=== PATIENT | female | born 1995 ===

== ENCOUNTER 2018-01-06 20:37 | Inpatient (IN) | payer SELFPAY ==
--- NOTE | 2018-01-06 21:12 | C.PDOC ---
History Of Present Illness 23 year old female presents to the emergency department requesting detox from heroin. Patient reports that she is currently , and states her last usage of heroin was earlier today. Time Seen by Provider: 01/06/18 21:12 Chief Complaint (Nursing): Substance Abuse History Per: Patient History/Exam Limitations: no limitations Onset/Duration Of Symptoms: Hrs Current Symptoms Are (Timing): Still Present Modifying Factor(s): Other (heroin) Severity: Moderate Past Medical History Reviewed: Historical Data, Nursing Documentation, Vital Signs Vital Signs: Last Vital Signs Temp 99 F 01/07/18 00:52 Pulse 75 01/07/18 00:52 Resp 20 01/07/18 00:52 BP 90/55 L 01/07/18 00:52 Pulse Ox 98 01/07/18 00:52 - Medical History PMH: Asthma Surgical History: No Surg Hx Family History: States: No Known Family Hx - Social History Hx Alcohol Use: No Hx Substance Use: Yes - Immunization History Hx Tetanus Toxoid Vaccination: No Hx Influenza Vaccination: No Hx Pneumococcal Vaccination: No Review Of Systems Neurological: Positive for: Altered Mental Status Physical Exam - Physical Exam Appears: Non-toxic, No Acute Distress Head: Normacephalic Eye(s): bilateral: Normal Inspection Oral Mucosa: Moist Neck: Trachea Midline, Supple Chest: Symmetrical Cardiovascular: Rhythm Regular Respiratory: No Rales, No Rhonchi, No Wheezing Gastrointestinal/Abdominal: Soft, No Tenderness, Other (gravid) Back: Normal Inspection Extremity: Normal ROM Extremity: Bilateral: Atraumatic Pulses: Left Dorsalis Pedis: Normal, Right Dorsalis Pedis: Normal Neurological/Psych: Oriented x3 Gait: Steady ED Course And Treatment - Laboratory Results Result Diagrams: 01/06/18 21:21 01/06/18 21:21 O2 Sat by Pulse Oximetry: 100 (RA) Pulse Ox Interpretation: Normal Progress Note: Plan: Alcohol Serum. Beta HCG. CMP. Drug Screen. CBC. AES Crisis Eval. HCG. Urinalysis. Pt might benefit from an VENDING TECHNICIAN consult as pt has not had any care, but has been taking vitamins Disposition Discussed With : Mc Cordon Comment: accepted the pt on his service and took over the care at 1 AM Doctor Will See Patient In The: Hospital Counseled Patient/Family Regarding: Studies Performed, Diagnosis - Disposition Disposition: HOSPITALIZED Disposition Time: 21:12 Condition: FAIR Forms: [facility] (Syrian) - POA Present On Arrival: None - Clinical Impression Clinical Impression: Drug abuse, Drug dependence, - Scribe Statement The provider has reviewed the documentation as recorded by the Scribe (Nils Person) Provider Attestation: All medical record entries made by the Scribe were at my direction and personally dictated by me. I have reviewed the chart and agree that the record accurately reflects my personal performance of the history, physical exam, medical decision making, and the department course for this patient. I have also personally directed, reviewed, and agree with the discharge instructions and disposition. Decision To Admit - Pt Status Changed To: Hospital Disposition Of: Inpatient - Admit Certification Admit to Inpatient:: After my assessment, the patient will require hospitalization for at least two midnights. This is because of the severity of symptoms shown, intensity of services needed, and/or the medical risk in this patient being treated as an outpatient. - InPatient: Physician Admission Certification: I certify that this patient requires 2 or more midnights of care for the following reason:: After my assessment, the patient will require hospitalization for at least two midnights. This is because of the severity of symptoms shown, intensity of services needed, and/or the medical risk in this patient being treated as an outpatient. - . Bed Request Type: Detox Admitting Physician: Mc Cordon Patient Diagnosis: Drug abuse, Drug dependence,
[2018-01-06 21:27] LABS: BASO % 0.2 % (0.0-2.0); EOS # 0.1 K/uL (0.0-0.7); EOS % 1.7 % (0.0-4.0); HEMOGLOBIN 10.6 g/dL (11.0-16.0); LYMPH # 1.4 K/uL (1.0-4.3); LYMPH % 24.6 % (20.0-40.0); MEAN CELL VOLUME 90.1 fL (81.0-99.0); MEAN CORPUSCULAR HEMOGLOBIN 31.7 pg (27.0-31.0); MEAN CORPUSCULAR HGB CONC 35.1 g/dL (33.0-37.0); MEAN PLATELET VOLUME 10.9 fL (7.2-11.7); MONO # 0.4 K/uL (0.0-0.8); MONO % 6.1 % (0.0-10.0); NEUT # 3.9 K/uL (1.8-7.0); NEUT % 67.4 % (50.0-75.0); NRBC % 0.1 % (0.0-2.0); RBC 3.35 Mil/uL (3.80-5.20); RED CELL DISTRIBUTION WIDTH 12.6 % (11.5-14.5); WHITE BLOOD COUNT 5.8 K/uL (4.8-10.8)
[2018-01-06 21:34] LABS: SQUAMOUS EPITHIAL 9 /hpf (0-5); URINE BILIRUBIN NEGATIVE (NEGATIVE); URINE BLOOD NEGATIVE (NEGATIVE); URINE CLARITY Clear (Clear); URINE COLOR Yellow (YELLOW); URINE GLUCOSE (UA) NORMAL (Normal); URINE LEUKOCYTE ESTERASE NEG Leu/uL (Negative); URINE PROTEIN NEGATIVE (NEGATIVE); URINE UROBILINOGEN NORMAL mg/dL (0.2-1.0)
[2018-01-06 21:39] LABS: ALB/GLOB RATIO 1.1 (1.0-2.1); ALBUMIN 3.6 g/dL (3.5-5.0); ALT/SGPT 9 U/L (9-52); AST/SGOT 21 U/L (14-36); BLOOD UREA NITROGEN 6 mg/dL (7-17); CALCIUM 8.7 mg/dl (8.6-10.4); GFR AFRICAN-AMERICAN > 60; GFR NON-AFRICAN AMERICAN > 60
[2018-01-06 21:43] LABS: BARBITURATES, UR NEGATIVE (NEGATIVE); OPIATES, UR NEGATIVE (NEGATIVE); PHENCYCLIDINE, UR NEGATIVE (NEGATIVE)
[2018-01-06 21:59] LABS: BENZODIAZEPINES, UR POSITIVE (NEGATIVE)
--- NOTE | 2018-01-06 22:59 | US ---
EXAM: US After First Trimester, Transabdominal CLINICAL HISTORY: 23 years old, female; Pain; Other: Abd pain; Gestational age or lmp: 32w6d; TECHNIQUE: Real-time transabdominal obstetrical ultrasound of the maternal pelvis and a second or third trimester with image documentation. COMPARISON: No relevant prior studies available. FINDINGS: Fetus: Single live intrauterine gestation. Heart rate: heart rate of 142 beats per minute. Presentation: Cephalic. Placenta: Fundal placenta. No placenta previa or abruption. Amniotic fluid: Normal. Anatomy: No gross anomaly is appreciated. BIOMETRICS Gestational age: Estimated gestational age of 32 weeks 6 days by measurements. CHRISTINA: 02/25/2018 by ultrasound. EFW: 2037 g. BPD: 8.3 cm, correlating with 33 weeks 2 days. HC: 29.7 cm, correlating with 32 weeks 6 days. AC: 29.0 cm, correlating with 33 weeks 0 days. FL: 6.2 cm, correlating with 32 weeks 1 day. MATERNAL: Uterus: Unremarkable. No myometrial mass. Cervix: No cervical dilatation or effacement. Free fluid: No free fluid. IMPRESSION: 1. Single live intrauterine gestation.
--- NOTE | 2018-01-07 03:48 | PCM.BM ---
<Virginie Armstrong - Last Filed: 01/07/18 03:45> Treatment Plan Problems - Problems identified on initial assessmt Opiate Dependence Date Initiated: 01/07/18 Time Initiated: 03:46 Assessment reference: NA Status: Active Benzodiazepine Dependence Date Initiated: 01/07/18 Time Initiated: 03:47 Assessment reference: NA Status: Active Treatment assets and liabiliti Patient Assests: ADL independent Patient Liabilities: substance abuse - Milieu Protocol Maintain good personal hygiene: daily Encourage regular showers, daily Remind patient to perform daily oral care, daily Assist patient to perform ADL's Maintain personal safety: every shift Educate patient to report safety concerns to staff, every shift Monitor environment for contraband/sharps Medication safety: Monitor for expected outcome, potential side effects: every shift, Assess barriers to learning: every shift, Assess readiness for medication education: every shift <Thomas Mccloud - Last Filed: 01/08/18 11:17> - Diagnosis (1) Opioid use disorder, severe, dependence Status: Acute Interventions: 01/08/18 11:17 * Assess 7x/week regarding severity of withdrawal * Educate regarding risks, benefits, side effects and alternatives of medications * Use Motivational Interviewing for abstinence * Use CBT for relapse prevention * Medication management for withdrawal symptoms * Encourage medication assisted treatment *
--- NOTE | 2018-01-07 10:03 | PCM.PSYCH ---
Initial Psychiatric Evaluation - Initial Psychiatric Evaluation Type of Admission: Voluntary Legal Status: Capacity Chief Complaint (in patient's own words): "I was told to come to detox and rehab" History of Present Illness and Precipitating Events: The patient is seen, chart reviewed and case discussed. This is a 23-year-old female, single with 2 children aged 1 and 5 years old and both are in foster care, and she is now 6 months . She lives alone, unemployed but her family helps, the father of her current unborn child is incarcerated. She admits to using Percocets and OxyContin's, around 40 mg a day for the past 2 years. She is somewhat vague about the amount and the dose. She also uses 2, sometimes 3, Xanax 2 mg tablets per day. She again started when she was 21 years old. She smokes marijuana "occasionally" and cigarettes "sometimes." She denies alcohol and other drugs. She went to our outpatient psychiatry program because there was a substance abuse group but she denies psychiatric symptoms. Past psych history: Denies Family psych history: Brother used drugs in the past and I'll ounce used alcohol , mother and brother also had likely bipolar disorder Medical history: Asthma Current Medications: Active Medications Generic Name Dose Route Start Last Admin Trade Name Freq PRN Reason Stop Dose Admin Diphenhydramine HCl 25 mg 01/07/18 10:01 Benadryl PO HS PRN Insomnia Multivit/Folic Acid/Iron 1 tab 01/07/18 10:00 PO DAILY RAMESH Past Psychiatric History - Past Psychiatric History Previous Treatment History: Intensive Outpatient Pertinent Medical Hx (Current Medical&Sleep Prob, Allergies): Allergies Allergy/AdvReac Type Severity Reaction Status Date / Time No Known Allergies Allergy Verified 01/06/18 20:46 No Known Home Med 01/06/18 Review of Systems - Neurological Neurological: UNREMARKABLE - Psychiatric Psychiatric: Abnormal Sleep Pattern, Anxiety, Difficulty Concentrating. absent : Depression, Hallucinations, Homicidal Ideation, Paranoia, Suicidal Ideation Mental Status Examination - Personal Presentation Personal Presentation: Looks older than stated age - Affect Affect: Constricted - Motor Activity Motor Activity: Calm - Reliability in Providing Information Reliability in Providing Information: Fair - Speech Speech: Organized - Mood Mood: Anxious - Formal Thought Process Formal Thought Process: No Impairment - Cognitive Functions Orientation: Person, Place, Situation, Time Sensorium: Alert Attention/Concentration: Attentive Abstract Thinking: Franklin Estimate of Intelligence: Average Judgement: Imparied, as evidence by: Poor judgement (Using while ), Intact, as evidence by: Insight regarding need for hospitalization (But she knows she needs to go to a rehab) Memory: Recent intact, as evidence by: Ability to recall events of the day, Remote impaired as evidenced by: Inability to recall sig life events - Risk Risk: Seizure, Withdrawal, Diminished functioning - Strength & Assets Inventory Strength & Assets Inventory: Cooperative - Limitations Limitations: Living alone, Other DSM 5 DX - DSM 5 DSM 5 Diagnosis: Opioid withdrawal Opioid use disorder, severe Sedative, hypnotic or anxiolytic use disorder moderate - Recommended/Plan of Treatment Treatment Recommendations and Plan of Treatment: Taper with methadone when she withdraws She did not choose to use benzo detox for now due to discussed risks. We will monitor and start if she starts to withdraw. She agreed As needed medications All risks, benefits and alternatives of the meds discussed, including their use in and the pt agreed and understood. Attend groups and activities Supportive therapy and psychoeducation [place] for abstinence CBT for relapse prevention Encourage MAT - methadone Refer to rehab such as [facility]" or IOP, and self-help groups Smoking cessation with [place] Nicotine patch if needed 34 min Projected ELOS: 5-6 days Prognosis: good with treatment and rehab - Smoking Cessation Smoking Cessation Initiated: Yes
[2018-01-07] MEDS: Prenatal Multivit/Folic Acid/Iron Tab PO SCH (10:54)
[2018-01-08] MEDS: Prenatal Multivit/Folic Acid/Iron Tab PO SCH (11:12)
--- NOTE | 2018-01-08 11:17 | PCM.PYCHPN ---
Psychiatric Progress Note - Psychiatric Progress Note Patient seen today, length of contact: 17 min Patient Chief Complaint: "I am fine today" Problems Identified/Issues Discussed: The pt is seen, chart reviewed, case discussed with staff. The pt is compliant with vitamins, no additional meds needed Not acutely withdrawing and will have prn meds if she does Symptoms are improving but needs more time to stabilize. After care discussed, support and psychoeducation given. She is now downplaying her need for [facility] program and says hse may lose her apt if she goes to a LTR She is open to 28-day rehabs and IOPs Medication Change: Yes Medical Record Reviewed: Yes Mental Status Examination - Cognitive Function Orientation: Person, Place, Situation, Time Memory: Intact Attention: Poor Concentration: Poor Association: WNL Fund of Knowledge: Poor - Mood Mood: Anxious - Affect Affect: Constricted - Speech Speech: Appropriate - Formal Thought Process Formal Thought Process: No Impairment - Suicidal Ideation Suicidal Ideation: No - Homicidal Ideation Homicidal Ideation: No Goal/Treatment Plan - Goal/Treatment Plan Need for Continued Stay: Discharge may exacerbated symptoms, Severe functional impairment Progress Toward Problem(s) and Goals/Treatment Plan: Taper with methadone when she withdraws She did not choose to use benzo detox for now due to discussed risks. We will monitor and start if she starts to withdraw. She agreed As needed medications All risks, benefits and alternatives of the meds discussed, including their use in and the pt agreed and understood. Attend groups and activities Supportive therapy and psychoeducation [place] for abstinence CBT for relapse prevention Encourage MAT - methadone Refer to rehab such as [facility]" or IOP, and self-help groups Smoking cessation with [place] Nicotine patch if needed
[2018-01-09] MEDS: Prenatal Multivit/Folic Acid/Iron Tab PO SCH (09:44)
--- NOTE | 2018-01-09 11:12 | PCM.PYCHPN ---
Psychiatric Progress Note - Psychiatric Progress Note Patient seen today, length of contact: 17 min Patient Chief Complaint: "I am fine today" Problems Identified/Issues Discussed: The pt is seen, chart reviewed, case discussed with staff. The pt is compliant with vitamins, no additional meds needed Not acutely withdrawing and will have prn meds if she does Symptoms are improving but needs more time to stabilize. After care discussed, support and psychoeducation given. She is now downplaying her need for [facility] program and says hse may lose her apt if she goes to a LTR She is open to 28-day rehabs and IOPs Medication Change: Yes Medical Record Reviewed: Yes Mental Status Examination - Cognitive Function Orientation: Person, Place, Situation, Time Memory: Intact Attention: Poor Concentration: Poor Association: WNL Fund of Knowledge: Poor - Mood Mood: Anxious - Affect Affect: Constricted - Speech Speech: Appropriate - Formal Thought Process Formal Thought Process: No Impairment - Suicidal Ideation Suicidal Ideation: No - Homicidal Ideation Homicidal Ideation: No Goal/Treatment Plan - Goal/Treatment Plan Need for Continued Stay: Discharge may exacerbated symptoms, Severe functional impairment Progress Toward Problem(s) and Goals/Treatment Plan: Taper with methadone when she withdraws She did not choose to use benzo detox for now due to discussed risks. We will monitor and start if she starts to withdraw. She agreed As needed medications All risks, benefits and alternatives of the meds discussed, including their use in and the pt agreed and understood. Attend groups and activities Supportive therapy and psychoeducation [place] for abstinence CBT for relapse prevention Encourage MAT - methadone Refer to rehab such as [facility]" or IOP, and self-help groups Smoking cessation with [place] Nicotine patch if needed
[2018-01-10 06:27] VITALS: O2SAT 95
--- NOTE | 2018-01-10 08:56 | PCM.PYCHDC ---
Mental Status Examination - Mental Status Examination Orientation: Person Discharge Summary - Discharge Note Consultations:: List each consultation separately and include: 1. Reason for request. 2. Findings. 3. Follow-up Summary of Hospital Course include:: 1. Description of specific treatment plan utilized for patients during their course of treatmen. 2. Summarize the time- course for resolution of acute symptoms and/or regressed behaviors. 3. Describe issues identified and worked on during hospitalization. 4. Describe medication utilized. 5. Describe medical problems identified and treated. 6. Reassessment of suicide risk Summary of Hospital Course: The patient is seen, chart reviewed and case discussed. This is a 23-year-old female, single with 2 children aged 1 and 5 years old and both are in foster care, and she is now 6 months . She lives alone, unemployed but her family helps, the father of her current unborn child is incarcerated. She admits to using Percocets and OxyContin's, around 40 mg a day for the past 2 years. She is somewhat vague about the amount and the dose. She also uses 2, sometimes 3, Xanax 2 mg tablets per day. She again started when she was 21 years old. She smokes marijuana "occasionally" and cigarettes "sometimes." She denies alcohol and other drugs. She went to our outpatient psychiatry program because there was a substance abuse group but she denies psychiatric symptoms. Past psych history: Denies Family psych history: Brother used drugs in the past and I'll ounce used alcohol , mother and brother also had likely bipolar disorder Medical history: Asthma She will go to [facility] but attend [facility] after that and wait for short term rehabs to call (and she will call) - Diagnosis (1) Opioid use disorder, severe, dependence Current Visit: Yes Status: Acute - Final Diagnosis (DSM 5) Condition upon Discharge: FAIR Disposition: HOME/ ROUTINE Follow-up Treatment Plan: Taper with methadone when she withdraws She did not choose to use benzo detox for now due to discussed risks. We will monitor and start if she starts to withdraw. She agreed As needed medications All risks, benefits and alternatives of the meds discussed, including their use in and the pt agreed and understood. Attend groups and activities Supportive therapy and psychoeducation [place] for abstinence CBT for relapse prevention Encourage MAT - methadone Refer to rehab such as [facility]" or IOP, and self-help groups Smoking cessation with [place] Nicotine patch if needed Prescriptions/Medication Reconciliation: Multivit/Folic Acid/I [] 1 tab PO DAILY #30 tab
[2018-01-10 09:09] VITALS: BP 113/68; PULSE 77; RESP 18; TEMP 98.3
[2018-01-10] MEDS: Prenatal Multivit/Folic Acid/Iron Tab PO SCH (10:22)
== END 2018-01-10 10:27 | disposition home or self-care (01) | DRG 886 ==
LOC: C.ER 20:37 → C.7D 01-07 01:00
PROC: HZ52ZZZ Individual Psychotherapy for Substance Abuse Treatment, Cognitive-Behavioral (ICD-10-PCS; principal; 2018-01-07)
PROC: HZ59ZZZ Individual Psychotherapy for Substance Abuse Treatment, Supportive (ICD-10-PCS; 2018-01-07)
PROC: HZ56ZZZ Individual Psychotherapy for Substance Abuse Treatment, Psychoeducation (ICD-10-PCS; 2018-01-07)
PROC: HZ42ZZZ Group Counseling for Substance Abuse Treatment, Cognitive-Behavioral (ICD-10-PCS; 2018-01-07)
PROC: HZ46ZZZ Group Counseling for Substance Abuse Treatment, Psychoeducation (ICD-10-PCS; 2018-01-07)
DX: O99.322 Drug use complicating pregnancy, second trimester (principal); F11.23 Opioid dependence with withdrawal; F13.20 Sedative, hypnotic or anxiolytic dependence, uncomplicated; F12.90 Cannabis use, unspecified, uncomplicated; O99.512 Diseases of the respiratory system complicating pregnancy, second trimester; J45.909 Unspecified asthma, uncomplicated; Z3A.24 24 weeks gestation of pregnancy